=== PATIENT | female | born 1990 | race American Indian/Alaskan Native ===

== ENCOUNTER 2016-04-03 10:23 | Emergency (ER) | payer OTHER ==
[2016-04-03 10:35] VITALS: BP 118/86
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
== END 2016-04-03 17:03 | disposition home or self-care (01) ==
LOC: ED 10:23
DX: S63.502A Unspecified sprain of left wrist, initial encounter (principal); S00.511A Abrasion of lip, initial encounter; L24.9 Irritant contact dermatitis, unspecified cause; Z91.018 Allergy to other foods; Z91.010 Allergy to peanuts; V89.2XXA Person injured in unspecified motor-vehicle accident, traffic, initial encounter; Y93.9 Activity, unspecified; Y99.9 Unspecified external cause status; Y92.410 Unspecified street and highway as the place of occurrence of the external cause